=== PATIENT | male | born 1950 | race African-American/Black ===

== ENCOUNTER 2023-01-25 21:28 | Inpatient (IN) | payer MEDICARE, OTHER ==
[~2023-01-25] VITALS: Ht 182.9 cm; Wt 86.2 kg
[~2023-01-25 21:28] MED LIST: CARI350T PO; GLIP10TA11 PO; NIFE60TA2 PO; PHENERGAN W/CODEINE PO; TYLENOL #4 PO
[2023-01-25] MEDS ORDERED: RISP0.5T65 PO (21:44)
[2023-01-25 22:26] LABS: BASOPHILS # (AUTO) 0.1 K/UL (0.0-0.2); BASOPHILS % (AUTO) 1.2 % (0.0-2.0); EOSINOPHILS # (AUTO) 0.2 K/uL (0.0-0.7); EOSINOPHILS % (AUTO) 3.9 % (0.0-7.0); HEMATOCRIT 43.5 % (36.7-47.1); HEMOGLOBIN 14.3 g/dL (12.5-16.3); LYMPHOCYTES % (AUTO) 37.4 % (20.5-51.5); MEAN CORPUSCULAR HGB CONC 33 g/dL (32.5-36.3); MEAN CORPUSCULAR VOLUME 91.3 fL (73.0-96.2); MONOCYTES # (AUTO) 0.6 K/uL (0.1-1.30); NEUTROPHILS # (AUTO) 2.4 K/uL (1.8-8.9); NEUTROPHILS % (AUTO) 46.5 % (38.5-71.5); PLATELET COUNT (AUTO) 140 K/uL (152-348); RED BLOOD CELL COUNT(AUTO) 4.77 MIL/uL (4.06-5.63); RED CELL DISTRIBUTION WIDTH 13.6 % (12.1-16.2); WHITE BLOOD COUNT (AUTO) 5.2 K/uL (3.6-10.2)
[2023-01-25 22:29] LABS: DIFFERENTIAL COMMENT 1
[2023-01-25 22:33] LABS: CALCIUM 8.9 mg/dL (8.5-10.1); CARBON DIOXIDE 23 mmol/L (21-32); CHLORIDE 108 mmol/L (98-107); CREATININE 0.6 mg/dL (0.6-1.3); GLUCOSE 141 mg/dL (74-106); POTASSIUM 3.9 mmol/L (3.5-5.1); SODIUM SERUM 140 mmol/L (136-145); UREA NITROGEN, BLOOD 15 mg/dL (7-18)
[2023-01-25 22:38] LABS: ETHANOL < 3 MG/DL (0-10)
[2023-01-25 22:39] LABS: ALANINE AMINOTRANSFERASE 23 U/L (16-63); ALBUMIN 3.2 g/dL (3.4-5.0); ALKALINE PHOSPHATASE 80 U/L (50-136); ASPARTATE AMINOTRANSFERASE 25 U/L (15-37); BILIRUBIN,DIRECT 0.1 mg/dL (0.0-0.2); BILIRUBIN,TOTAL 0.5 mg/dL (0.2-1.0); TOTAL PROTEIN, SERUM 6.5 g/dL (6.4-8.2)
[2023-01-25 23:17] LABS: THYROID STIMULATING HORMONE 2.939 mIU/mL (0.358-3.740)
[2023-01-26 00:45] VITALS: BP 149/67; TEMP 98.3; O2SAT 96
[2023-01-26] MEDS ORDERED: BLOOD SUGAR DIAGNOSTIC 1 EACH STRIP VI ONE (01:00)
[2023-01-26] MEDS ORDERED: MAG HYDROX/AL HYDROX/SIMETH 30 ML LIQUID UDC PO PRN (01:00)
[2023-01-26] MEDS ORDERED: MAGNESIUM HYDROXIDE 30 ML LIQUID UDC PO PRN (01:00)
[2023-01-26] MEDS: ZOLPIDEM 5 MG TABLET PO PRN (01:35)
[2023-01-26 08:04] VITALS: BP 132/68; TEMP 98.9; O2SAT 99
[2023-01-26] MEDS: glipiZIDE 10 MG TABLET PO SCH ×2 (08:44→17:01)
[2023-01-26] MEDS: NICOTINE 21 MG/24HR PATCH TD SCH (08:44)
[2023-01-26] MEDS ORDERED: NIFEdipine XL 60 MG TABSR PO SCH ×2 (09:00)
[2023-01-26 16:05] VITALS: BP 158/77; TEMP 98.3; O2SAT 98
[2023-01-26] MEDS ORDERED: LISI10TA29 PO (18:40)
[2023-01-26] MEDS ORDERED: ATOR10TA PO (18:40)
[2023-01-26] MEDS ORDERED: HYDR25TA4 PO (18:44)
[2023-01-26] MEDS: LISINOPRIL 10 MG TABLET PO SCH (19:09)
[2023-01-26] MEDS: HYDROCHLOROTHIAZIDE 25 MG TABLET PO SCH (19:10)
[2023-01-26 20:32] VITALS: BP 143/67; TEMP 98.4; O2SAT 97
[2023-01-27] MEDS: ZOLPIDEM 5 MG TABLET PO PRN (00:51)
[2023-01-27 07:49] VITALS: BP 132/84; TEMP 98; O2SAT 99
[2023-01-27] MEDS: LISINOPRIL 10 MG TABLET PO SCH (08:33)
[2023-01-27] MEDS: glipiZIDE 10 MG TABLET PO SCH ×2 (08:33→16:52)
[2023-01-27] MEDS: HYDROCHLOROTHIAZIDE 25 MG TABLET PO SCH (08:34)
[2023-01-27] MEDS: NICOTINE 21 MG/24HR PATCH TD SCH (08:34)
[2023-01-27 15:22] VITALS: BP 120/72; TEMP 98; O2SAT 98
[2023-01-27] MEDS: ACETAMINOPHEN 325 MG TABLET PO PRN ×2 (16:52→23:07)
[2023-01-27 19:55] VITALS: BP 132/61; TEMP 98.1; O2SAT 99
[2023-01-27] MEDS: LORAZEPAM 1 MG TABLET PO PRN (21:01)
[2023-01-28] MEDS: ZOLPIDEM 5 MG TABLET PO PRN (01:55)
[2023-01-28] MEDS: LORAZEPAM 1 MG TABLET PO PRN (04:50)
[2023-01-28 08:00] VITALS: BP 125/68; TEMP 97.6; O2SAT 98
[2023-01-28 08:37] VITALS: BP 132/61
[2023-01-28] MEDS: HYDROCHLOROTHIAZIDE 25 MG TABLET PO SCH (08:37)
[2023-01-28] MEDS: LISINOPRIL 10 MG TABLET PO SCH (08:37)
[2023-01-28] MEDS: NICOTINE 21 MG/24HR PATCH TD SCH (08:37)
[2023-01-28] MEDS: glipiZIDE 10 MG TABLET PO SCH (08:38)
== END 2023-01-28 13:00 | disposition left against medical advice (07) | DRG 885 ==
LOC: ER 21:36 → GPS 01-26 00:06
PROVIDERS: ADMIT Psychiatry & Neurology Psychiatry; ATTEND Internal Medicine
DX: F39 Unspecified mood [affective] disorder (principal); F03.911 Unspecified dementia, unspecified severity, with agitation; F03.94 Unspecified dementia, unspecified severity, with anxiety; F03.92 Unspecified dementia, unspecified severity, with psychotic disturbance; E78.5 Hyperlipidemia, unspecified; E11.9 Type 2 diabetes mellitus without complications; F31.9 Bipolar disorder, unspecified; Z79.899 Other long term (current) drug therapy; M62.81 Muscle weakness (generalized); I10 Essential (primary) hypertension; Z87.440 Personal history of urinary (tract) infections; Z79.84 Long term (current) use of oral hypoglycemic drugs; Z91.81 History of falling; F13.10 Sedative, hypnotic or anxiolytic abuse, uncomplicated; F11.10 Opioid abuse, uncomplicated
CPT/HCPCS: 36415; 84443; 85025; G0480